=== PATIENT | male | born 1965 | race Hispanic/Latino ===

== ENCOUNTER 2023-05-20 16:15 | Emergency (ER) | payer BC, OTHER ==
[~2023-05-20] VITALS: Ht 177.8 cm; Wt 117.9 kg
[2023-05-20 16:44] VITALS: BP 104/62; PULSE 81; RESP 20
[2023-05-20] MEDS ORDERED: PRED20TA3 PO (19:23)
[2023-05-20] MEDS ORDERED: IBUP-2070 PO (19:23)
[2023-05-20] MEDS ORDERED: METH-811 PO (19:23)
[2023-05-20] MEDS ORDERED: PREDNISONE 20 MG TABLET PO ONE (19:30)
[2023-05-20] MEDS ORDERED: IBUPROFEN 600 MG TABLET PO ONE (19:30)
[2023-05-20] MEDS ORDERED: TIZANIDINE HCL 2 MG TABLET PO SCH (19:30)
[2023-05-20] MEDS ORDERED: GABAPENTIN 300 MG CAPSULE PO SCH (19:30)
[2023-05-20] MEDS ORDERED: DIAZEPAM 5 MG TABLET PO ONE (19:30)
== END 2023-05-20 19:31 | disposition home or self-care (01) ==
LOC: EDH 16:15
DX: M54.41 Lumbago with sciatica, right side (principal); E11.9 Type 2 diabetes mellitus without complications; K21.9 Gastro-esophageal reflux disease without esophagitis; Z90.49 Acquired absence of other specified parts of digestive tract
CPT/HCPCS: 73502; 73562

== ENCOUNTER 2024-04-19 08:40 | Day surgery (SDC) | payer OTHER ==
[2024-04-14 15:38] VITALS: BP 114/68; PULSE 75; RESP 19; TEMP 98.2
[2024-04-14 15:44] LABS: BASOPHILS # (AUTO) 0.04 K/uL (0.00-0.20); BASOPHILS % (AUTO) 0.4 % (0.0-5.0); EOSINOPHILS # (AUTO) 0.21 K/uL (0.00-0.70); EOSINOPHILS % (AUTO) 2.1 % (0.0-8.0); HEMATOCRIT 45.8 % (42-54); IMMATURE GRANULOCYTE ABSOLUTE 0.03 K/uL (0-1); LYMPHOCYTES # (AUTO) 2.3 K/uL (1.0-4.8); LYMPHOCYTES % (AUTO) 22.9 % (21.0-51.0); MEAN CORPUSCULAR HEMOGLOBIN 30.5 pg (27.0-33.0); MEAN CORPUSCULAR VOLUME 92.5 fL (79-99); MONOCYTES # (AUTO) 0.8 K/uL (0.1-1.0); MONOCYTES % (AUTO) 7.4 % (3.0-13.0); NEUTROPHILS # (AUTO) 6.8 K/uL (1.8-7.7); NEUTROPHILS % (AUTO) 66.9 % (40.0-77.0); PLATELET COUNT (AUTO) 214 K/uL (130-400); RED BLOOD CELL COUNT(AUTO) 4.95 MIL/uL (4.50-6.20); RED CELL DISTRIBUTION WIDTH 13.7 % (11.0-15.5); WHITE BLOOD COUNT (AUTO) 10.2 K/uL (4.8-10.8)
[2024-04-14 15:57] LABS: INR 1.01 (0.85-1.15); PROTHROMBIN TIME 10.9 SEC (9.6-11.6)
[2024-04-14 15:59] LABS: PARTIAL THROMBOPLASTIN TIME 25.6 SEC (26.3-35.5)
[2024-04-14 16:07] LABS: CREATININE 1.2 mg/dL (0.5-1.3)
[2024-04-19] VITALS (17 sets, daily range): BP systolic 123–151; BP diastolic 59–84; PULSE 78–96; RESP 14–18; TEMP 97.6–98.2
[~2024-04-19] VITALS: Ht 177.8 cm; Wt 112.2 kg
[2024-04-19] MEDS: 0.9%NACL 1000ML 1,000 ML IV ONE (09:21)
[2024-04-19] MEDS: ceFAZolin SODIUM 2 GM VIAL ONE (09:21)
[2024-04-19] MEDS ORDERED: ICOS1CAP PO (09:36)
[2024-04-19] MEDS ORDERED: EMPA25TA PO (09:36)
[2024-04-19] MEDS ORDERED: TIRZ15PE SQ (09:36)
[2024-04-19] MEDS ORDERED: OLME20TA68 PO (09:36)
[2024-04-19] MEDS ORDERED: ROSU40TA88 PO (09:36)
[2024-04-19] MEDS ORDERED: ASPI-1197 PO (09:36)
[2024-04-19] MEDS ORDERED: LANS30CA55 PO (09:36)
[2024-04-19] MEDS ORDERED: SOLI10TA7 PO (09:36)
[2024-04-19] MEDS ORDERED: LIDOCAINE PF 100MG/5ML (2%) SYRINGE 5ML ONE (09:50)
[2024-04-19] MEDS ORDERED: SUCCINYLCHOLINE CHLORIDE 20 MG/ML 10 ML VIAL ONE (09:50)
[2024-04-19] MEDS ORDERED: dexaMETHasone SOD PHOSPHATE 10MG/ML 1ML VIAL ONE (09:51)
[2024-04-19] MEDS ORDERED: proPOFol 10 MG/ML 20ML VIAL IV ONE (09:51)
[2024-04-19] MEDS ORDERED: GLYCOPYRROLATE 0.2 MG/ML 5 ML VIAL ONE (09:51)
[2024-04-19] MEDS ORDERED: ONDANSETRON 4MG INJ ONE (09:51)
[2024-04-19] MEDS ORDERED: NEOSTIGMINE METHYLSULFATE 1MG/ML IV ONE (09:52)
[2024-04-19] MEDS ORDERED: rocuRONium bROMide 10MG/1ML 5ML VL ONE (09:52)
[2024-04-19] MEDS ORDERED: MIDAZOLAM HCL 1 MG/ML 2ML VIAL ONE (09:52)
[2024-04-19] MEDS ORDERED: FENTanyl CITRate PF 50 MCG/1 ML 2ML VIAL ONE ×2 (09:52→12:08)
[2024-04-19] MEDS ORDERED: ROPivacaine 0.5% 5MG/ML 30ML ONE (09:55)
[2024-04-19] MEDS: EPINEPHrine 1MG/10ML(1:10,000) 0.1 MG/ML SYG ONE (11:30)
[2024-04-19] MEDS ORDERED: ePHEDrine SULFate 50 MG/ML AMPULE ONE (12:05)
[2024-04-19] MEDS ORDERED: SUGAMMADEX SODIUM 200 MG/2 ML VIAL IV ONE (12:10)
[2024-04-19] MEDS ORDERED: HYDR-4060 PO (13:26)
[2024-04-19] MEDS ORDERED: CYCL-309 PO (13:26)
[2024-04-19] MEDS: ONDANSETRON 4MG INJ ONE (14:26)
[2024-04-19] MEDS: metoCLOPRAmide 10 MG/2 ML VIAL ONE (14:38)
== END 2024-04-19 15:35 | disposition home or self-care (01) ==
LOC: DAH 08:40
PROVIDERS: ATTEND Student in an Organized Health Care Education/Training Program
DX: M75.01 Adhesive capsulitis of right shoulder (principal); M19.011 Primary osteoarthritis, right shoulder; M75.21 Bicipital tendinitis, right shoulder; M75.41 Impingement syndrome of right shoulder; M25.811 Other specified joint disorders, right shoulder; G47.33 Obstructive sleep apnea (adult) (pediatric); K21.9 Gastro-esophageal reflux disease without esophagitis; I10 Essential (primary) hypertension; E11.9 Type 2 diabetes mellitus without complications; E78.5 Hyperlipidemia, unspecified; Z79.01 Long term (current) use of anticoagulants; Z79.899 Other long term (current) drug therapy
CPT/HCPCS: 80048; 85025; 85610; 85730; 36415; 29824; 64415; 29826; 29825; 82948 ×2; A4663; J7030 ×2; A4565; A4452; J3010 ×2; J1100; J0330; J3490 ×3; J2001; J0171; J2250; J2704; J2405 ×2; J2710; J2765; J2795; J0690; A6223; A4930; A5120; A4215; A4222; A4221; A4216; A4223 ×2